=== PATIENT | female | born 1950 | race Hispanic/Latino ===

== ENCOUNTER 2021-08-25 14:00 | Observation (INO) | payer MEDICARE ==
[~2021-08-25] VITALS: Ht 154.9 cm; Wt 78.0 kg
[2021-08-26 10:55] VITALS: BP 158/65
[2021-08-26 11:32] LABS: CREATININE 0.7 mg/dL (0.5-1.5); POTASSIUM 4.2 mmol/L (3.5-5.1)
[2021-08-26 11:36] LABS: BASOPHILS % (AUTO) 0.9 % (0.0-5.0); EOSINOPHILS % (AUTO) 1.1 % (0.0-8.0); HEMATOCRIT 37.6 % (36-48); LYMPHOCYTES % (AUTO) 33.3 % (21.0-51.0); MEAN CORPUSCULAR HEMOGLOBIN 29.6 pg (27.0-33.0); MEAN CORPUSCULAR HGB CONC 33.2 g/dL (32.0-36.0); MEAN CORPUSCULAR VOLUME 89.1 fL (79-99); MONOCYTES % (AUTO) 6.8 % (3.0-13.0); NEUTROPHILS % (AUTO) 57.7 % (40.0-77.0); PLATELET COUNT (AUTO) 269 K/uL (130-400); RED BLOOD CELL COUNT(AUTO) 4.22 MIL/uL (4.00-5.50); RED CELL DISTRIBUTION WIDTH 13.2 % (11.0-15.5); WHITE BLOOD COUNT (AUTO) 5.4 K/uL (4.8-10.8)
[2021-08-26 11:39] LABS: BILIRUBIN,URINE Negative (NEGATIVE); COLOR,URINE Yellow (YELLOW); GLUCOSE, URINE (UA) Negative (NEGATIVE); KETONES,URINE Negative (NEGATIVE); LEUKOCYTE ESTERASE ,URINE Moderate (NEGATIVE); NITRATE,URINE Negative (NEGATIVE); OCCULT BLOOD,URINE Negative (NEGATIVE); PROTEIN,URINE Negative (NEGATIVE)
[2021-08-26 11:53] LABS: PROTHROMBIN TIME 10.9 SEC (9.6-11.6)
[2021-08-26 11:57] LABS: APPEARANCE,URINE SLIGHTLY CLOUDY (CLEAR)
[2021-08-26 12:00] LABS: BACTERIA,URINE Rare /HPF (None Seen); MUCUS,URINE Moderate LPF (None Seen); RBC,URINE 0-1 /HPF (0-1); SQUAMOUS EPITHELIAL CELL,UR Rare /HPF (0-2); WBC,URINE 0-1 /HPF (0-1)
[2021-08-26] MEDS ORDERED: HYDR12.54 PO (12:46)
[2021-08-26] MEDS ORDERED: ACET-2521 PO (12:46)
[2021-08-26] MEDS ORDERED: AEC81 PO (12:46)
[2021-08-26] MEDS ORDERED: LISI40TA9 PO (12:46)
[2021-08-26] MEDS ORDERED: MELO-108 PO (12:46)
[2021-08-26] MEDS ORDERED: ATOR10TA69 PO (12:46)
[2021-08-26] MEDS ORDERED: OMEP20CA12 PO (12:46)
[2021-08-31] VITALS (24 sets, daily range): BP systolic 106–158; BP diastolic 56–74
[2021-08-31] MEDS ORDERED: CEFAZOLIN SODIUM 1 GM VIAL ONE ×4 (10:51→17:51)
[2021-08-31] MEDS ORDERED: LACTATED RINGERS 1000ML 1,000 ML IV ONE (10:51)
[2021-08-31] MEDS ORDERED: METOCLOPRAMIDE 10 MG/2 ML VIAL ONE (12:41)
[2021-08-31] MEDS ORDERED: ACETAMINOPHEN 500 MG TABLET ONE (12:42)
[2021-08-31] MEDS ORDERED: CELECOXIB 200 MG CAP ONE (12:42)
[2021-08-31] MEDS ORDERED: LIDOCAINE PF 100MG/5ML (2%) SYRINGE 5ML ONE (14:23)
[2021-08-31] MEDS ORDERED: SUCCINYLCHOLINE CHLORIDE 20 MG/ML 10 ML VIAL ONE (14:23)
[2021-08-31] MEDS ORDERED: FENTANYL CITRATE PF 50 MCG/1 ML 2ML VIAL ONE ×2 (14:24→17:48)
[2021-08-31] MEDS ORDERED: ROCURONIUM 10MG/1ML SYR 10 MG/ML ML ONE (14:24)
[2021-08-31] MEDS ORDERED: MIDAZOLAM HCL 1 MG/ML 2ML VIAL ONE (14:24)
[2021-08-31] MEDS ORDERED: PROPOFOL 10 MG/ML 20ML VIAL IV ONE ×2 (14:24→17:05)
[2021-08-31] MEDS ORDERED: DEXAMETHASONE SOD PHOSPHATE 10MG/ML 1ML VIAL ONE (14:38)
[2021-08-31] MEDS ORDERED: GLYCOPYRROLATE 1 MG/5 ML SYRINGE ONE (15:06)
[2021-08-31] MEDS ORDERED: TRANEXAMIC ACID 1000MG/10ML ONE ×2 (15:06→18:09)
[2021-08-31] MEDS ORDERED: TEMAZEPAM 15 MG CAPSULE PO PRN (19:00)
[2021-08-31] MEDS ORDERED: FERROUS FUMARATE 324 MG TABLET PO PRN (19:00)
[2021-08-31] MEDS ORDERED: OXYCODONE HCL 5 MG TAB PO PRN ×2 (19:00)
[2021-08-31] MEDS ORDERED: KCL 20 MEQ ERTAB PO PRN (19:00)
[2021-08-31] MEDS ORDERED: ONDANSETRON 4MG INJ IVP PRN (19:00)
[2021-08-31] MEDS ORDERED: POTASSIUM CHLORIDE 20MEQ/100ML 100 ML IV PRN (19:00)
[2021-08-31] MEDS ORDERED: CALCIUM CARB 500MG PO PRN (19:00)
[2021-08-31] MEDS ORDERED: TRAMADOL HCL 50 MG TABLET PO PRN (19:00)
[2021-08-31] MEDS ORDERED: DiphenhydrAMINE HCL 50 MG/ML VIAL IVP PRN (19:00)
[2021-08-31] MEDS ORDERED: KETOROLAC 15MG/ML VIAL (15MG/ML) IV PRN (19:00)
[2021-08-31] MEDS ORDERED: POTASSIUM CHLORIDE 10% ELIXIR 20 MEQ/15 ML UDCUP PO PRN (19:00)
[2021-08-31] MEDS ORDERED: 0.9%NACL 1000ML 1,000 ML IV SCH (19:00)
[2021-08-31] MEDS ORDERED: MEPERIDINE-PF 25 MG/ML SYG ONE ×2 (19:14→19:28)
[2021-08-31] MEDS: PREGABALIN 25 MG CAP PO SCH (21:38)
[2021-08-31] MEDS: ASPIRIN 81 MG EC TAB PO SCH (21:38)
[2021-08-31] MEDS: ACETAMINOPHEN 500 MG TABLET PO SCH (21:39)
[2021-08-31] MEDS: CELECOXIB 200 MG CAP PO SCH (21:42)
[2021-08-31] MEDS: CEFAZOLIN SODIUM 1 GM VIAL IVP SCH (23:45)
[2021-09-01] MEDS: ACETAMINOPHEN 500 MG TABLET PO SCH ×3 (02:34→21:01)
[2021-09-01 04:15] VITALS: BP 116/52
[2021-09-01 04:29] LABS: CREATININE 0.7 mg/dL (0.5-1.5); POTASSIUM 3.9 mmol/L (3.5-5.1)
[2021-09-01 04:32] LABS: HEMATOCRIT 32.8 % (36-48); MEAN CORPUSCULAR HEMOGLOBIN 29.8 pg (27.0-33.0); MEAN CORPUSCULAR HGB CONC 33.5 g/dL (32.0-36.0); MEAN CORPUSCULAR VOLUME 88.9 fL (79-99); RED BLOOD CELL COUNT(AUTO) 3.69 MIL/uL (4.00-5.50); RED CELL DISTRIBUTION WIDTH 13.2 % (11.0-15.5); WHITE BLOOD COUNT (AUTO) 10.5 K/uL (4.8-10.8)
[2021-09-01 07:30] VITALS: BP_SYST 118; BP_SYST 142; BP_DIAS 67; BP_DIAS 83
[2021-09-01] MEDS: CEFAZOLIN SODIUM 1 GM VIAL IVP SCH (08:28)
[2021-09-01] MEDS: ASPIRIN 81 MG EC TAB PO SCH ×2 (08:28→21:00)
[2021-09-01] MEDS: CELECOXIB 200 MG CAP PO SCH ×2 (08:28→21:00)
[2021-09-01] MEDS: PANTOPRAZOLE 40 MG TAB DR PO SCH (08:28)
[2021-09-01] MEDS: PREGABALIN 25 MG CAP PO SCH ×2 (08:28→21:00)
[2021-09-01] MEDS: ATORVASTATIN 10 MG TABLET PO SCH (08:28)
[2021-09-01] MEDS: POLYETHYLENE GLYCOL 3350 17 GM POWD.PACK PO SCH (08:29)
[2021-09-01] MEDS ORDERED: LISINOPRIL 40 MG TABLET PO SCH (09:00)
[2021-09-01] MEDS ORDERED: HYDROCHLOROTHIAZIDE 25 MG TABLET PO SCH (09:00)
[2021-09-01 11:00] VITALS: BP 105/44
[2021-09-01 16:00] VITALS: BP 107/45
[2021-09-01 19:00] VITALS: BP 108/53
[2021-09-02] VITALS: BP 136/56
[2021-09-02] MEDS: ACETAMINOPHEN 500 MG TABLET PO SCH ×2 (03:23→11:56)
[2021-09-02 04:00] VITALS: BP 153/83
[2021-09-02] MEDS: CELECOXIB 200 MG CAP PO SCH (07:42)
[2021-09-02] MEDS: ASPIRIN 81 MG EC TAB PO SCH (07:42)
[2021-09-02] MEDS: PANTOPRAZOLE 40 MG TAB DR PO SCH (07:42)
[2021-09-02] MEDS: PREGABALIN 25 MG CAP PO SCH (07:42)
[2021-09-02] MEDS: POLYETHYLENE GLYCOL 3350 17 GM POWD.PACK PO SCH (07:42)
[2021-09-02 08:22] VITALS: BP 113/51
[2021-09-02] MEDS: ATORVASTATIN 10 MG TABLET PO SCH (09:55)
[2021-09-02 11:17] VITALS: BP 118/42
[2021-09-02] MEDS ORDERED: AEC81 PO ×2 (14:48→14:56)
[2021-09-02] MEDS ORDERED: HYDR-4060 PO (14:56)
[2021-09-02 15:52] VITALS: BP 121/56
[2021-09-03] MEDS ORDERED: BISACODYL 10 MG SUPP.RECT RC PRN (19:00)
== END 2021-09-02 18:15 | disposition home health service (06) ==
LOC: EDSTATUS 14:00 → DAHIP 08-31 10:00 → INTOOBSV 08-31 10:00 → 4AH 08-31 20:20
PROVIDERS: ADMIT Orthopaedic Surgery; ATTEND Orthopaedic Surgery
DX: M21.061 Valgus deformity, not elsewhere classified, right knee (principal); Z20.822 Contact with and (suspected) exposure to COVID-19; M17.11 Unilateral primary osteoarthritis, right knee; D62 Acute posthemorrhagic anemia; I10 Essential (primary) hypertension; E03.9 Hypothyroidism, unspecified; K21.9 Gastro-esophageal reflux disease without esophagitis; E66.9 Obesity, unspecified; Z96.653 Presence of artificial knee joint, bilateral; Z79.899 Other long term (current) drug therapy
CPT/HCPCS: 27487; 36415 ×2; 64447; 73564; 76942; 80048 ×2; 81001; 85025; 85027; 85610; 87071; 87076; 87088; 87205; 87635; 87641; 96374; 96376; 97039 ×4; 97116 ×4; 97161; 97530 ×4; A4215; A4216; A4221; A4222; A4223 ×2; A4600; A4649 ×6; A4663; A4930 ×3; A5120; A9272; C1776 ×5; G0378 ×45; J0330; J0690 ×6; J1100; J2001; J2175 ×2; J2250; J2704 ×2; J2765; J3010 ×2; J3490 ×3; J7030; J7120 ×2